=== PATIENT | female | born 2005 | race Caucasian/White ===

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

== ENCOUNTER 2024-12-26 21:37 | Emergency (ER) | payer OTHER | END 2024-12-26 23:30 | disposition left against medical advice (07) | LOC: ER 21:37 | DX: F41.0 Panic disorder [episodic paroxysmal anxiety] (principal); Z53.21 Procedure and treatment not carried out due to patient leaving prior to being seen by health care provider ==